=== PATIENT | female | born 1985 | race American Indian/Alaskan Native ===

== ENCOUNTER 2022-02-09 04:33 | Emergency (ER) | payer OTHER ==
--- NOTE | 2022-02-09 07:45 | Emergency Department Report ---
- General Chief Complaint: Upper Respiratory Infection Stated Complaint: NASAL CONGESTION Time Seen by Provider: 02/09/22 07:33 Source: patient Mode of arrival: Ambulatory Limitations: No Limitations - History of Present Illness Initial Comments: 36-year-old F Brazilian female Erendira emerged from complaining of 1-1/2-week history of sinus congestion which has been progressively worsening since the onset not responding to [id number] medication. She reported having green mucus production that has turned some streaks of blood over the past couple days when blowing her nose. She reports no hemoptysis, no hematemesis, no chest pain, no fevers, chills, sweats. Does have some pressure behind her ears but no dizziness. MD Complaint: rhinorrhea, nasal congestion, sinus pain -: Gradual Severity: moderate Quality: dull Consistency: constant Improves With: nothing Worsens With: nothing Associated Symptoms: rhinorrhea, nasal congestion. denies: myalgias, chest pain, shortness of breath, abdominal pain, vomiting, weight loss Treatments Prior to Arrival: none - Related Data Previous Rx's Medication Instructions Recorded Last Taken Type Amoxicillin/Potassium Clav 1 each PO BID #20 tablet 02/09/22 Unknown Rx [Augmentin 875-125 Tablet] Mometasone Furoate [Nasonex] 1 spray INTRANASAL DAILY #1 bottle 02/09/22 Unknown Rx predniSONE [Deltasone] 20 mg PO QDAY #5 tab 02/09/22 Unknown Rx Allergies Allergy/AdvReac Type Severity Reaction Status Date / Time No Known Allergies Allergy Unverified 02/09/22 04:49 ED Review of Systems ROS: Stated complaint: NASAL CONGESTION Other details as noted in HPI Comment: All other systems reviewed and negative ED Past Medical Hx - Medications Home Medications: Home Medications Medication Instructions Recorded Confirmed Last Taken Type Amoxicillin/Potassium Clav 1 each PO BID #20 tablet 02/09/22 Unknown Rx [Augmentin 875-125 Tablet] Mometasone Furoate [Nasonex] 1 spray INTRANASAL DAILY #1 bottle 02/09/22 Unknown Rx predniSONE [Deltasone] 20 mg PO QDAY #5 tab 02/09/22 Unknown Rx ED Physical Exam - General Limitations: No Limitations General appearance: alert, in no apparent distress - Head Head exam: Present: atraumatic, normocephalic - Eye Eye exam: Present: normal appearance, PERRL, EOMI - ENT ENT exam: Present: normal exam, normal orophraynx, mucous membranes moist, other (Frontal sinus tenderness and ethmoid sinus tenderness to percussion. Unable to transilluminate sinuses due to the location) - Neck Neck exam: Present: normal inspection - Respiratory Respiratory exam: Present: normal lung sounds bilaterally. Absent: respiratory distress - Cardiovascular Cardiovascular Exam: Present: regular rate, normal rhythm. Absent: systolic murmur, diastolic murmur, rubs, gallop - GI/Abdominal GI/Abdominal exam: Present: soft, normal bowel sounds - Extremities Exam Extremities exam: Present: normal inspection - Back Exam Back exam: Present: normal inspection - Neurological Exam Neurological exam: Present: alert, oriented X3 - Psychiatric Psychiatric exam: Present: normal affect, normal mood - Skin Skin exam: Present: warm, dry, intact, normal color. Absent: rash ED Course Vital Signs 02/09/22 04:48 Temperature 97.1 F L Pulse Rate 99 H Respiratory 18 Rate Blood Pressure 114/75 [Right] O2 Sat by Pulse 97 Oximetry Critical care attestation.: If time is entered above; I have spent that time in minutes in the direct care of this critically ill patient, excluding procedure time. ED Disposition Clinical Impression: Sinusitis Disposition: 01 HOME / SELF CARE / HOMELESS Is pt being admited?: No Does the pt Need Aspirin: No Condition: Stable Instructions: Sinusitis, Adult Prescriptions: Amoxicillin/Potassium Clav [Augmentin 875-125 Tablet] 1 each PO BID #20 tablet predniSONE [Deltasone] 20 mg PO QDAY #5 tab Mometasone Furoate [Nasonex] 1 spray INTRANASAL DAILY #1 bottle Referrals: [facility] [Provider Group] - 3-5 Days
[2022-02-09 08:51] VITALS: BP 136/89
== END 2022-02-09 08:50 | disposition home or self-care (01) ==
LOC: ED 04:33
DX: J32.9 Chronic sinusitis, unspecified (principal)
CPT/HCPCS: 99282